=== PATIENT | male | born 1935 | race Caucasian/White ===

== ENCOUNTER 2016-06-18 17:23 | Inpatient (IN) | payer MEDICARE, OTHER ==
[2016-06-18 18:09] LABS: Hematocrit 35 % (42-52); Hemoglobin 11.6 g/dl (14.0-18.0); Mean Corpuscular HGB Conc 33 g/dl (31-36); Mean Corpuscular Hemoglobin 32 pg (27-31); Mean Corpuscular Volume 98 fL (80-94); Mean Platelet Volume 8 um3 (7.4-10.4); Red Blood Count 3.59 10^6/ul (4.0-5.4); Red Cell Distribution Width 16 % (10.5-15); White Blood Count 3.4 10^3/ul (3.5-10.8)
[2016-06-18 18:13] LABS: Add Diff/Slide Review? Slide Review Added; Comments Flag Yes
[2016-06-18 18:22] LABS: Albumin 3.4 g/dL (3.2-5.2); BUN/Creatinine Ratio 20.9 (8-20); Calcium 8.8 mg/dL (8.6-10.3); EGFR African American 102.8 (>60); Globulin 2.7 g/dL (2-4); Potassium 3.5 mmol/L (3.5-5.0); Total Bilirubin 1.2 mg/dL (0.2-1.0); Total Protein 6.1 g/dL (6.4-8.9)
[2016-06-18 18:23] LABS: Troponin I 0.01 ng/mL (<0.04)
[2016-06-18 18:40] LABS: Eosinophils % 2 % (0-6); Immature Granulocytes 11 % (0-9); Macrocytosis 2+; Metamyelocytes % 2 % (0-2); Neutrophil % 69 % (38-83); Polychromasia 1+; Reactive Lymph % 3 % (0-6)
[2016-06-18 18:41] LABS: Stomatocytes 1+
--- NOTE | 2016-06-18 18:41 | RAD ---
INDICATION: Fever COMPARISON: Most recent comparison chest x-rays dated December 05, 2015 TECHNIQUE: Single AP portable view of the chest was obtained. FINDINGS: Image quality is compromised due to the relative inferiority of a portable chest x-ray. Again seen is a right upper chest subclavian vein Mediport with the tip terminating at the cavoatrial junction. The heart and mediastinum exhibit normal size and contour. The lungs are grossly clear. There is no evidence of a large pleural effusion. Visualized bones are normal for the patient's age. IMPRESSION: No radiographic evidence for acute cardiopulmonary abnormality on this portable chest x-ray.
[2016-06-18] MEDS: NS 0.9% 1000 ML* 2,000 ML IV ONE ×2 (19:56→20:46)
[2016-06-18 20:12] LABS: Urine Bacteria 1+ (Absent); Urine Bilirubin Negative (Negative); Urine Glucose Negative (Negative); Urine Nitrite Negative (Negative)
[2016-06-18] MEDS ORDERED: cefTRIAXone(*) 2 GM ADDV.VIAL IVPB ONE (20:42)
[2016-06-18] MEDS ORDERED: NS 0.9% 500 ML BAG* 500 ML IV ONE (21:00)
[2016-06-18] MEDS ORDERED: Cetirizine* 10 MG TAB PO PRN (21:57)
[2016-06-18] MEDS ORDERED: oxyCODONE TAB* 5 MG TAB PO PRN (21:57)
[2016-06-18] MEDS ORDERED: ECONAZOLE 1% TOPICAL PRN (21:57)
[2016-06-18] MEDS ORDERED: Loperamide CAP* 2 MG PO PRN (21:57)
[2016-06-18] MEDS ORDERED: Ondansetron INJ* 2 MG/ML VIAL IV PRN (22:02)
[2016-06-18] MEDS ORDERED: Acetaminophen TAB* 325 MG PO PRN (22:02)
[2016-06-18] MEDS ORDERED: Dextrose 50% Syringe 50 ML* 25 GM/50 ML SYRINGE IV PUSH PRN (22:03)
[2016-06-19] MEDS: NS 0.9% 1000 ML* 1,000 ML IV SCH ×2 (02:11→06:56)
[2016-06-19] MEDS: Insulin LISPRO* 1 UNITS UNIT SUBCUT SCH ×3 (07:57→17:09)
[2016-06-19] MEDS: oxyCODONE SR TAB(*) 10 MG TAB.SR PO SCH ×2 (08:49→21:43)
[2016-06-19] MEDS: predniSONE TAB* 5 MG PO SCH ×2 (08:50→21:43)
[2016-06-19] MEDS ORDERED: Ferrous Sulfate TAB* 325 MG PO SCH (09:00)
--- NOTE | 2016-06-19 09:05 | HP ---
HISTORY AND PHYSICAL: DATE OF ADMISSION: 06/18/16 CHIEF COMPLAINT: Please note the history was given by his . HISTORY OF PRESENT ILLNESS: The patient had been doing well recently, using his walker and getting around quite well; but yesterday he started becoming more fatigued and unsteady. He was increasingly confused as well. It continued today which made them more concerned. His appetite decreased as well. He had trouble even getting out of bed. He has a chronic issue with incontinence, and has had a couple of UTIs already this year. They took his temperature at home and it was 101.2, and their PCP told them to take him to the hospital. In the hospital, the patient does appear to have a urinary tract infection, and is already feeling better with some rehydration. PAST MEDICAL HISTORY: Significant for: 1. Prostate cancer metastasized to his scapula and his liver. He is status post six rounds of chemo Taxotere, oral Zytiga, and recently started on his second round of new chemotherapy. 2. B12 deficiency. 3. Cognitive impairment. 4. Post-concussive syndrome. 5. Type 2 diabetes. 6. DVT. 7. Gallstones. 8. Macrocytosis. 9. Psoriases. 10. Previous radiation treatment in 2006. CURRENT MEDICATIONS: 1. Lupron 30 mg injection monthly. 2. Loratadine 10 mg daily. 3. Iron 325 mg daily. 4. Imodium A-D 1 mg tab daily as needed. 5. Econazole cream daily as needed. 6. Oxycodone 5 mg every 4 hours as needed. 7. Oxycodone SR 10 mg twice daily. 8. Glipizide. 9. Metformin one tablet twice daily. 10. Prednisone 5 mg twice daily. 11. Coumadin 6 mg daily. 12. Flomax 0.4 mg daily. ALLERGIES: He has environmental allergies, but no known drug allergies. FAMILY HISTORY: Reviewed and noncontributory. SOCIAL HISTORY: No tobacco, alcohol or recreational drug use. His , Maria Isabel Connor, is his healthcare proxy. He has two daughters in the room. REVIEW OF SYSTEMS: A 14-point review of systems is completed with the patient. All pertinent positives and negatives are in the history of present illness, otherwise it is negative. PHYSICAL EXAMINATION GENERAL: A very pleasant gentleman lying in bed, in no acute distress. VITAL SIGNS: Temperature 98.9 degrees, heart rate 103 beats per minute, pulse ox 96%, blood pressure 125/58. HEENT: Normocephalic and atraumatic. Pupils are equal, round and reactive to light. Moist mucous membranes. NECK: Supple. No JVD, bruits, palpable thyroid or lymphadenopathy. CHEST: Clear to auscultation and percussion bilaterally. CARDIOVASCULAR: S1, S2 appreciated. ABDOMEN: Positive bowel sounds in all 4 quadrants. Soft, nontender, and nondistended. EXTREMITIES: No cyanosis, clubbing, or edema. +2 peripheral pulses bilaterally. NEUROLOGIC: Alert and oriented x3. Moves all extremities. SKIN: No rashes or abnormalities. LABORATORY DATA: White count 3.4, hemoglobin 11.6, hematocrit 35, platelets 209. Sodium 135, potassium 3.5, chloride 100, CO2 25, BUN 19, creatinine 0.91, glucose 112, INR 2.12. Urinalysis shows +3 leukocyte esterase, +3 wbcs, +3 rbcs. Chest x-ray was interpreted by Radiology as no radiographic evidence of acute cardiopulmonary abnormality on the portable chest x-ray. ASSESSMENT AND PLAN: 1. UTI. Place the patient on Ancef 1 g IV q.day. Await cultures and sensitivities. Also place him on normal saline at a rate of 100 mL an hour as he appears quite dry. 2. Diabetes mellitus. Hold oral hypoglycemics. Place on fingersticks with sliding scale insulin and monitor. 3. Prostate cancer with mets. Management as per oncology. Continue current pain management. 4. DVT. Continue Coumadin. 5. BPH. Continue Flomax. 6. FEN. Regular diet. 7. DVT prophylaxis. On Coumadin. 8. The patient is a full code. TIME SPENT: Over 75 minutes were spent on this H and P, more than 40 minutes of which were spent in direct [id number] contact with the patient in evaluation, physical exam, counseling, and coordination of care. CC: Dr. Mayo Gallego* [id number]/[facility] #: [id number] MTDD
--- NOTE | 2016-06-19 13:27 | RAD ---
Indication: Aspiration. Single frontal view of the chest performed at 1305 hours was reviewed. Comparison is made with previous exam dated June 18, 2016. Hyperinflated lung almaraz are noted. Heart is normal size and configuration. Lung almaraz are clear. IMPRESSION: NO ACTIVE CARDIOPULMONARY DISEASE IS NOTED.
[2016-06-19] MEDS ORDERED: ECONAZOLE 1% TOPICAL PRN (15:31)
[2016-06-19] MEDS ORDERED: Ferrous Sulfate DROPS* 15 MG/ML PO SCH (16:07)
--- NOTE | 2016-06-19 17:01 | PN ---
Subjective Date of Service: 06/19/16 Interval History: This is an 81 yo gentleman currently under active treatment for metastatic prostate cancer admitted overnight last night with complaints of fatigue, unsteady gait and confusion. Urinanalysis was suggestive of UTI and he was empirically started on Ceftriaxone. Patient's family has noted some improvement in his mental status today. Patient offers no acute complaints but he did experience an aspiration event at lunch today. He had several bites of his baked chicken but then was eating chocolate pudding when he began coughing and subsequently vomited. Patient denied proceeding nausea or abdominal pain. He continues to cough occasionally , but no c/o of SOB. No h/o of aspiration at home or c/o dysphagia. Objective Active Medications: Acetaminophen (Tylenol Tab*) 650 mg PO Q4H PRN PRN Reason: FEVER/PAIN Cetirizine HCl (Zyrtec*) 10 mg PO DAILY PRN PRN Reason: Allergy Symptoms Dextrose (D50w Syringe 50 Ml*) 12.5 gm IV PUSH .FOR FS < 60 - SS PRN PRN Reason: FS < 60 Econazole Nitrate (Econazole 1 % Cream (Nf)) 1 applic TOPICAL DAILY PRN PRN Reason: RASH Heparin Sodium (Porcine) (Heparin Flush Port (Ivad)) 5 ml FLUSH DAILY [facility] PRN Reason: Protocol Last Admin: 06/19/16 13:45 Dose: 5 ml Ceftriaxone Sodium 1,000 mg/ (Sodium Chloride) 50 mls @ 200 mls/hr IVPB Q24H [facility] Insulin Human Lispro (Humalog*) 0 units SUBCUT AC [facility] PRN Reason: Protocol Last Admin: 06/19/16 12:17 Dose: Not Given Loperamide HCl (Imodium Cap*) 2 mg PO DAILY PRN PRN Reason: DIARRHEA Ferrous Sulfate 65 (Mg) 1 dose PO DAILY [facility] Ondansetron HCl (Zofran Inj*) 4 mg IV Q4H PRN PRN Reason: NAUSEA Last Admin: 06/19/16 13:29 Dose: 4 mg Oxycodone HCl (Oxycontin(*)) 10 mg PO BID [facility] Last Admin: 06/19/16 08:49 Dose: 10 mg Oxycodone HCl (Roxycodone Tab*) 5 mg PO Q4H PRN PRN Reason: PAIN Prednisone (Deltasone Tab*) 5 mg PO BID [facility] Last Admin: 06/19/16 08:50 Dose: 5 mg Tamsulosin HCl (Flomax Cap*) 0.4 mg PO BEDTIME [facility] Warfarin Sodium (Coumadin Tab(*)) 6 mg PO DAILY@1700 [facility] PRN Reason: Protocol Vital Signs: Temp Pulse Resp BP Pulse Ox 98.8 F 104 16 130/51 97 06/19/16 15:24 06/19/16 15:24 06/19/16 10:49 06/19/16 15:24 06/19/16 15:24 Appearance: Well appearing elderly gentleman in a chair at bedside with family accompanying him Neck: NL Appearance and Movements; NL JVP Respiratory: Symmetrical Chest Expansion and Respiratory Effort, Clear to Auscultation Cardiovascular: NL Sounds; No Murmurs; No JVD, RRR Abdominal: NL Sounds; No Tenderness; No Distention Extremities: - - mild LE edema, compression stockings in place. Neurological: - - alert, appropriate in conversation, but forgetful and relied on his family to help with providing some answers Result Diagrams: 06/18/16 17:35 06/18/16 17:35 Additional Lab and Data: . Diagnostic Imaging: CXR - NAD Assess/Plan/Problems-Billing Assessment: This is an 81 yo male with metastatic prostate CA, NIDDM, and prior DVT who presented with weakness and confusion with noted UTI. - Patient Problems (1) Sepsis Comment: Secondary to UTI qSOFA = 2 at admission due to tachypnea and AMS and met SIRS criteria including fever and tachycardia (2) Encephalopathy Comment: Secondary to UTI Improving (3) UTI (urinary tract infection) Comment: Culture pending Cont ceftriaxone (4) Prostate cancer metastatic to bone Comment: Under active treatment with Dr Gallego (5) Diabetes Comment: Non-insulin dependent Good glycemic control since admission Oral hypoglycemic agents have been held, covering with mealtime Humalog (6) Aspiration into respiratory tract Comment: Ordered repeat CXR No h/o prior dysphagia or other aspiration events Requested speech evaluation for swallow evaluation (7) History of DVT (deep vein thrombosis) Comment: Anticoagulated with Coumadin Status and Disposition: Patient requires continued hospital care, further treatment per oncology team. Attending physician will be transitioned to Dr Katarzyna Hollins.
[2016-06-19] MEDS: Warfarin TAB(*) 6 MG PO SCH (17:12)
[2016-06-19] MEDS: cefTRIAXone VIAL(*) 1,000 MG in NS 0.9% 50 ML* 50 ML IVPB SCH (21:36)
[2016-06-19] MEDS: Tamsulosin CAP* 0.4 MG PO SCH (21:42)
[2016-06-20 06:15] LABS: Hematocrit 29 % (42-52); Hemoglobin 9.7 g/dl (14.0-18.0); Mean Corpuscular HGB Conc 34 g/dl (31-36); Mean Corpuscular Hemoglobin 33 pg (27-31); Mean Corpuscular Volume 98 fL (80-94); Mean Platelet Volume 8 um3 (7.4-10.4); Red Blood Count 2.92 10^6/ul (4.0-5.4); Red Cell Distribution Width 16 % (10.5-15)
[2016-06-20 06:23] LABS: Comments Flag Yes; White Blood Count 3.3 10^3/ul (3.5-10.8)
[2016-06-20 06:24] LABS: Add Diff/Slide Review? Slide Review Added
[2016-06-20 06:29] LABS: BUN/Creatinine Ratio 19.4 (8-20); Calcium 8.3 mg/dL (8.6-10.3); EGFR African American 89.1 (>60); EGFR Non-African American 69.3 (>60)
[2016-06-20 06:47] LABS: Hypochromasia 1+; Immature Granulocytes 4 % (0-9); Neutrophil % 62 % (38-83); Reactive Lymph % 1 % (0-6)
[2016-06-20 06:49] LABS: Add Path Review? YES
[2016-06-20] MEDS: Insulin LISPRO* 1 UNITS UNIT SUBCUT SCH ×3 (08:15→17:29)
[2016-06-20] MEDS: oxyCODONE SR TAB(*) 10 MG TAB.SR PO SCH ×2 (08:28→23:21)
[2016-06-20] MEDS: predniSONE TAB* 5 MG PO SCH ×2 (08:28→23:23)
[2016-06-20] MEDS ORDERED: FERROUS SULFATE 65 MG PO SCH (09:00)
--- NOTE | 2016-06-20 11:01 | PN ---
Progress Note - Progress Note SOAP: Subjective: []Admitted late 06/18 with SIRS, first abx. 06/18 @ approx. 2000 Temp. last night, otherwise stable. Feeling a lot better today, more oriented and a little stronger. Still weak and "wobbly". is curious about more assistance @ home. Medications: Acetaminophen (Tylenol Tab*) 650 mg PO Q4H PRN PRN Reason: FEVER/PAIN Last Admin: 06/20/16 00:03 Dose: 650 mg Cetirizine HCl (Zyrtec*) 10 mg PO DAILY PRN PRN Reason: Allergy Symptoms Dextrose (D50w Syringe 50 Ml*) 12.5 gm IV PUSH .FOR FS < 60 - SS PRN PRN Reason: FS < 60 Last Admin: 06/20/16 08:27 Dose: 12.5 gm Econazole Nitrate (Econazole 1 % Cream (Nf)) 1 applic TOPICAL DAILY PRN PRN Reason: RASH Heparin Sodium (Porcine) (Heparin Flush Port (Ivad)) 5 ml FLUSH DAILY [facility] PRN Reason: Protocol Last Admin: 06/20/16 08:28 Dose: 5 ml Ceftriaxone Sodium 1,000 mg/ (Sodium Chloride) 50 mls @ 200 mls/hr IVPB Q24H [facility] Last Admin: 06/19/16 21:36 Dose: 200 mls/hr Insulin Human Lispro (Humalog*) 0 units SUBCUT AC [facility] PRN Reason: Protocol Last Admin: 06/20/16 08:15 Dose: Not Given Loperamide HCl (Imodium Cap*) 2 mg PO DAILY PRN PRN Reason: DIARRHEA Last Admin: 06/19/16 17:14 Dose: 2 mg Ferrous Sulfate 65 (Mg) 1 dose PO DAILY [facility] Last Admin: 06/20/16 08:40 Dose: Not Given Ondansetron HCl (Zofran Inj*) 4 mg IV Q4H PRN PRN Reason: NAUSEA Last Admin: 06/19/16 13:29 Dose: 4 mg Oxycodone HCl (Oxycontin(*)) 10 mg PO BID [facility] Last Admin: 06/20/16 08:28 Dose: 10 mg Oxycodone HCl (Roxycodone Tab*) 5 mg PO Q4H PRN PRN Reason: PAIN Prednisone (Deltasone Tab*) 5 mg PO BID [facility] Last Admin: 06/20/16 08:28 Dose: 5 mg Tamsulosin HCl (Flomax Cap*) 0.4 mg PO BEDTIME [facility] Last Admin: 06/19/16 21:42 Dose: 0.4 mg Warfarin Sodium (Coumadin Tab(*)) 6 mg PO DAILY@1700 [facility] PRN Reason: Protocol Last Admin: 06/19/16 17:12 Dose: 6 mg Objective: [] Vital Signs Temp Pulse Resp BP Pulse Ox 97.8 F 87 16 101/48 95 06/20/16 06:36 06/20/16 06:36 06/20/16 08:28 06/20/16 06:36 06/20/16 08:00 A&Ox3, slow responses, follows directions EOMI, EMSA, ambulates with slow shuffled gait HRR, S1S2 LS clear +BS, abd. soft and non-tender +PP=bilat., +2 edema bilat. Laboratory Results - last 24 hr 06/19/16 06/19/16 06/20/16 11:57 16:19 06:00 WBC RBC Hgb Hct MCV MCH MCHC RDW Plt Count MPV Immature Gran % (Auto) Neut % (Auto) Lymph % (Auto) Hawkins % (Auto) Eos % (Auto) Baso % (Auto) Absolute Neuts (auto) Absolute Lymphs (auto) Absolute Monos (auto) Absolute Eos (auto) Absolute Basos (auto) Absolute Nucleated RBC Neutrophils % Band Neutrophils % Lymphocytes % Reactive Lymphs % Monocytes % Basophils % Nucleated RBC % Normal RBC Morphology Hypochromasia Sodium 136 Potassium 3.0 L Chloride 106 Carbon Dioxide 24 Anion Gap 6 BUN 20 Creatinine 1.03 Est GFR ( Amer) 89.1 Est GFR (Non-Af Amer) 69.3 BUN/Creatinine Ratio 19.4 Glucose 130 H POC Glucose (mg/dL) 113 H 152 H Calcium 8.3 L 06/20/16 06/20/16 06/20/16 06:00 08:13 08:56 WBC 3.3 L RBC 2.92 L Hgb 9.7 L Hct 29 L MCV 98 H MCH 33 H MCHC 34 RDW 16 H Plt Count 164 MPV 8 Immature Gran % (Auto) 4 Neut % (Auto) 67.4 Lymph % (Auto) 9.7 L Hawkins % (Auto) 22.4 H Eos % (Auto) 0.2 Baso % (Auto) 0.3 Absolute Neuts (auto) 2.2 Absolute Lymphs (auto) 0.3 L Absolute Monos (auto) 0.7 Absolute Eos (auto) 0 Absolute Basos (auto) 0 Absolute Nucleated RBC 0 Neutrophils % 62 Band Neutrophils % 4 Lymphocytes % 6 L Reactive Lymphs % 1 Monocytes % 26 H Basophils % 1 Nucleated RBC % 0.1 Normal RBC Morphology Not Reportable Hypochromasia 1+ Sodium Potassium Chloride Carbon Dioxide Anion Gap BUN Creatinine Est GFR ( Amer) Est GFR (Non-Af Amer) BUN/Creatinine Ratio Glucose POC Glucose (mg/dL) 57 L 223 H Calcium Assessment: []81 y.o. m. with metastatic prostate cancer currently on palliative Cabezitaxel admitted with SIRS secondary to Klebsiella UTI, sensitive to Ceftriaxone, and appearing to improve slowly on abx. Plan: []1. Klebsiella UTI: cont. IV abx. through tonight (will be third dose) and plan d/c home with Cipro 2. Weakness: secondary to deconditioning from SIRS, cont. PT and will request home care eval. as well. 3. Hypokalemia: will give 40 mEq IV today and start PO replacement, follow daily labs 4. Prostate Cancer: f/u Dr. Gallego 06/26 already scheduled, will determine plan of care regarding further tx. at that time
[2016-06-20 11:28] LABS: Magnesium 1.9 mg/dL (1.9-2.7)
[2016-06-20] MEDS: KCL 20 MEQ/100 ML IVPREMIX* 20 MEQ/100 ML BAG IV SCH ×2 (11:56→14:09)
[2016-06-20] MEDS: Potassium Chloride LIQUID* 20 MEQ PACKET PO SCH (11:57)
[2016-06-20] MEDS: Warfarin TAB(*) 6 MG PO SCH (17:28)
[2016-06-20] MEDS: cefTRIAXone VIAL(*) 1,000 MG in NS 0.9% 50 ML* 50 ML IVPB SCH (23:00)
[2016-06-20] MEDS: glipiZIDE TAB* 5 MG PO SCH (23:19)
[2016-06-20] MEDS: metFORMIN* 500 MG TAB PO SCH (23:22)
[2016-06-20] MEDS: Tamsulosin CAP* 0.4 MG PO SCH (23:23)
[2016-06-21 05:56] LABS: Hematocrit 28 % (42-52); Hemoglobin 9.4 g/dl (14.0-18.0); Mean Corpuscular HGB Conc 33 g/dl (31-36); Mean Corpuscular Hemoglobin 33 pg (27-31); Mean Corpuscular Volume 97 fL (80-94); Mean Platelet Volume 8 um3 (7.4-10.4); Red Blood Count 2.88 10^6/ul (4.0-5.4); Red Cell Distribution Width 16 % (10.5-15); White Blood Count 3.7 10^3/ul (3.5-10.8)
[2016-06-21 06:14] LABS: BUN/Creatinine Ratio 26.4 (8-20); Calcium 8.1 mg/dL (8.6-10.3); EGFR African American 102.8 (>60); Magnesium 1.8 mg/dL (1.9-2.7); Potassium 3.9 mmol/L (3.5-5.0)
--- NOTE | 2016-06-21 07:39 | DS ---
- Discharge Summary ADMIT DATE:06/18/16 DISCHARGE DATE: 06/21/16 DISCHARGE DIAGNOSIS: 1. SIRS from urinary tract infection 2. klebsiella UTI 3. dehydration 4. metastatic prostate cancer on palliative chemotherapy 5. hypokalemia DISCHARGE MEDICATIONS: Home Medications Medication Instructions Recorded Confirmed Type Iron 65 mg PO DAILY 01/19/15 06/19/16 History LoraTADine TAB(NF) [Claritin 10 MG 10 mg PO DAILY PRN 01/19/15 06/18/16 History TAB(NF)] Imodium A-D 1 tab PO DAILY PRN 01/31/15 06/18/16 History Econazole 1 % CREAM (NF) 1 apply TOPICAL DAILY PRN 09/24/15 06/18/16 History Lupron Depot (NF) 30 mg INJ MONTHLY 09/24/15 06/18/16 History Glipizide-Metformin HCl 1 tab PO BID 06/18/16 06/18/16 History [Glipizide/Metformin HCl 2.5-250 mg] Warfarin TAB(*) [Coumadin TAB(*)] 6 mg PO DAILY@1700 06/18/16 06/18/16 History oxyCODONE SR TAB(*) [Oxycontin 10 10 mg PO BID 06/18/16 06/18/16 History mg (*)] oxyCODONE TAB* [Roxycodone TAB 5 5 mg PO Q4H PRN 06/18/16 06/18/16 History mg*] predniSONE TAB* [Deltasone TAB*] 5 mg PO BID 06/18/16 06/18/16 History Cyanocobalamin TAB* [Vitamin B12 500 mcg PO DAILY 06/19/16 06/19/16 History TAB*] Docusate CAP* [Colace Cap*] 100 mg PO DAILY PRN 06/19/16 06/19/16 History Psyllium LUCILLE* [Metamucil LUCILLE*] 1 pkt PO DAILY PRN 06/19/16 06/19/16 History Senna TAB* [Senokot TAB*] 1 tab PO DAILY PRN 06/19/16 06/19/16 History Terazosin CAP* [Hytrin CAP*] 1 mg PO BEDTIME 06/19/16 06/19/16 History Ciprofloxacin TAB* [Cipro 250 MG 250 mg PO Q12HR #10 tab 06/21/16 Rx Tab*] Potassium Chloride LIQUID* 20 meq PO DAILY #30 packet 06/21/16 Rx [Klor-Con LIQUID*] Tamsulosin CAP* [Flomax CAP*] 0.4 mg PO BEDTIME cap 06/21/16 Rx *] bold medications new DISCHARGE FOLLOW UP: Dr. Gallego 06/26 at 2:40 pm, to have INR checked at this visit HOSPITAL COURSE: see full admit H+P, briefly 81 yo M w metastatic prostate cancer on palliative chemotherapy with Jevtana, who presented with fevers, weakness and hypotension and was found to have a klebsiella urinary tract infection. He was treated with hydration and IV antibiotics with improvement. He reports feeling well enough to go home. His infection is sensitive to cipro and he will be discharged with 5 more days of therapy. He was also started on potassium supplementation. Given antibiotic use, his INR will be followed closely and will be checked prior to discharge and on his follow up with Dr. Gallego on the . He will also have electrolytes checked on this visit. >30 mins spent, >50% in face to face counseling
[2016-06-21] MEDS ORDERED: Ciprofloxacin TAB* 250 MG PO SCH (09:00)
[2016-06-21] MEDS ORDERED: Ferrous Sulfate TAB* 325 MG PO SCH (09:00)
[2016-06-21] MEDS: oxyCODONE SR TAB(*) 10 MG TAB.SR PO SCH (09:07)
[2016-06-21] MEDS: Potassium Chloride LIQUID* 20 MEQ PACKET PO SCH (09:07)
[2016-06-21] MEDS: glipiZIDE TAB* 5 MG PO SCH (09:13)
[2016-06-21] MEDS: predniSONE TAB* 5 MG PO SCH (09:14)
[2016-06-21] MEDS: metFORMIN* 500 MG TAB PO SCH (09:14)
[2016-06-21] MEDS: Insulin LISPRO* 1 UNITS UNIT SUBCUT SCH ×2 (09:17→13:33)
[2016-06-21 11:08] VITALS: BP 110/48
== END 2016-06-21 15:15 | disposition home or self-care (01) | DRG 689 ==
LOC: ED 17:23 → MED 22:03
PROVIDERS: ADMIT Internal Medicine; ATTEND Internal Medicine Hematology & Oncology
DX: N39.0 Urinary tract infection, site not specified (principal); G93.40 Encephalopathy, unspecified; C78.7 Secondary malignant neoplasm of liver and intrahepatic bile duct; C79.51 Secondary malignant neoplasm of bone; B96.1 Klebsiella pneumoniae [K. pneumoniae] as the cause of diseases classified elsewhere; E86.0 Dehydration; C61 Malignant neoplasm of prostate; F07.81 Postconcussional syndrome; E87.6 Hypokalemia; E53.8 Deficiency of other specified B group vitamins; N40.0 Benign prostatic hyperplasia without lower urinary tract symptoms; G31.84 Mild cognitive impairment of uncertain or unknown etiology; E11.9 Type 2 diabetes mellitus without complications; D75.89 Other specified diseases of blood and blood-forming organs; L40.9 Psoriasis, unspecified; K80.80 Other cholelithiasis without obstruction; Z86.718 Personal history of other venous thrombosis and embolism; Z79.84 Long term (current) use of oral hypoglycemic drugs; Z79.1 Long term (current) use of non-steroidal anti-inflammatories (NSAID); Z79.01 Long term (current) use of anticoagulants; Z79.891 Long term (current) use of opiate analgesic; Z79.52 Long term (current) use of systemic steroids; Z79.899 Other long term (current) drug therapy
CPT/HCPCS: 36415; 71010; 80048; 80053; 81003; 81015; 83605; 83735; 84484; 85025; 85060; 85610; 85730; 87040; 87077; 87086; 87186; 99232; 99233; A9270-GY; J0696; J1642; J2405; J3480; J7512

== ENCOUNTER 2016-07-30 17:24 | Inpatient (IN) | payer MEDICARE, OTHER ==
[2016-07-30] MEDS ORDERED: Docusate CAP* 100 MG PO PRN (17:41)
--- NOTE | 2016-07-30 19:33 | RAD ---
Indication: Fall, head injury, on anticoagulants CT of the brain was performed without IV contrast. Ventricular structures are midline. No midline shift is noted. The extra-axial spaces are unremarkable. There is no evidence of intracranial mass or hemorrhage. No other high or low density lesions are identified. Central and cortical atrophy is noted. Compared to previous exam of May 04, 2015 no significant change is noted. IMPRESSION: No intracranial mass or hemorrhage is noted.
[2016-07-30] MEDS: oxyCODONE SR TAB(*) 10 MG TAB.SR PO SCH (21:28)
[2016-07-30] MEDS: Warfarin TAB(*) 5 MG PO SCH (21:29)
[2016-07-30] MEDS: metFORMIN* 500 MG TAB PO SCH (21:30)
[2016-07-30] MEDS: glipiZIDE TAB* 5 MG PO SCH (21:30)
[2016-07-30] MEDS: predniSONE TAB* 5 MG PO SCH (21:30)
[2016-07-31 06:14] LABS: Hematocrit 29 % (42-52); Hemoglobin 9.6 g/dl (14.0-18.0); Mean Corpuscular HGB Conc 34 g/dl (31-36); Mean Corpuscular Hemoglobin 33 pg (27-31); Mean Corpuscular Volume 97 fL (80-94); Mean Platelet Volume 9 um3 (7.4-10.4); Red Blood Count 2.96 10^6/ul (4.0-5.4); Red Cell Distribution Width 19 % (10.5-15); White Blood Count 5.2 10^3/ul (3.5-10.8)
[2016-07-31 06:25] LABS: Albumin 2.8 g/dL (3.2-5.2); BUN/Creatinine Ratio 25.3 (8-20); Calcium 8.4 mg/dL (8.6-10.3); EGFR African American 108.3 (>60); EGFR Non-African American 84.2 (>60); Globulin 2.4 g/dL (2-4); Potassium 3.8 mmol/L (3.5-5.0); Total Bilirubin 0.4 mg/dL (0.2-1.0); Total Protein 5.2 g/dL (6.4-8.9)
[2016-07-31] MEDS: metFORMIN* 500 MG TAB PO SCH ×2 (08:34→20:40)
[2016-07-31] MEDS: Potassium Chloride LIQUID* 20 MEQ PACKET PO SCH (08:34)
[2016-07-31] MEDS: oxyCODONE SR TAB(*) 10 MG TAB.SR PO SCH ×2 (08:34→20:39)
[2016-07-31] MEDS: predniSONE TAB* 5 MG PO SCH ×2 (08:34→20:40)
[2016-07-31] MEDS: glipiZIDE TAB* 5 MG PO SCH ×2 (08:35→20:40)
--- NOTE | 2016-07-31 08:46 | DS ---
- Discharge Summary BRIEF OBV DISCHARGE SUMMARY ADMIT DATE: 07/30/16 DISCHARGE DATE: 07/31/16 DISCHARGE DIAGNOSIS: 1. fall, mechanical 2. deconditioning 3. metastatic prostate cancer DISCHARGE MEDICATIONS: Home Medications Medication Instructions Recorded Confirmed Type Iron 65 mg PO DAILY 01/19/15 07/30/16 History LoraTADine TAB(NF) [Claritin 10 MG 10 mg PO DAILY PRN 01/19/15 07/30/16 History TAB(NF)] Imodium A-D 1 tab PO DAILY PRN 01/31/15 07/30/16 History Econazole 1 % CREAM (NF) 1 apply TOPICAL DAILY PRN 09/24/15 07/30/16 History y Glipizide-Metformin HCl 1 tab PO BID 06/18/16 07/30/16 History [Glipizide/Metformin HCl 2.5-250 mg] oxyCODONE SR TAB(*) [Oxycontin 10 30 mg PO BID 06/18/16 07/30/16 History mg (*)] oxyCODONE TAB* [Roxycodone TAB 5 5 mg PO Q4H PRN 06/18/16 07/30/16 History mg*] predniSONE TAB* [Deltasone TAB*] 5 mg PO BID 06/18/16 07/30/16 History Cyanocobalamin TAB* [Vitamin B12 500 mcg PO DAILY 06/19/16 07/30/16 History TAB*] Docusate CAP* [Colace Cap*] 100 mg PO DAILY PRN 06/19/16 07/30/16 History Senna TAB* [Senokot TAB*] 1 tab PO DAILY PRN 06/19/16 07/30/16 History Terazosin CAP* [Hytrin CAP*] 1 mg PO BEDTIME 06/19/16 07/30/16 History Potassium Chloride LIQUID* 20 meq PO DAILY #30 packet 06/21/16 07/30/16 Rx [Klor-Con LIQUID*] Warfarin TAB(*) [Coumadin TAB(*)] 5 MG tab PO DAILY Mon-Thur 07/31/16 07/30/16 Rx Warfarin TAB(*) [Coumadin TAB(*)] 7.5 mg PO DAILY Fri-Thu07/31/16 07/30/16 Rx DISCHARGE FOLLOW UP: CT scans 08/[address] Gallego 08/07 at 11 am HOSPITAL COURSE: see full admit H+P. Mr. Connor had a fall the morning of admission. At the time it was not clear if he syncopized or if it was a mechanical fall. He did hit his face/head and has a conjunctival hemorrhage. In speaking with him this am he is very clear that he got up to use his bedside commode and tripped over his own feet falling. He was unable to get up without assistance. He had a head CT which was unremarkable and was observed overnight on telemetry without event. His INR notably was low and his coumadin will be increased as above. He will recheck in 2 weeks.
[2016-07-31] MEDS ORDERED: Iodixanol* (CONTRAST) 320 MG/ML 100 ML SDV IV SCH (14:57)
--- NOTE | 2016-07-31 16:41 | RAD ---
Indication: Restaging, prostate carcinoma with metastatic disease. Contrast: Administered 94.2 ml of VISIPAQUE 320 mg/ml CT of the chest, abdomen and pelvis was performed after oral and IV contrast administration. Comparison is made with previous exam dated May 09, 2016. The inferior thyroid lobes are unremarkable. No mediastinal or hilar adenopathy is noted. The heart demonstrates no pericardial effusion. The trachea and major bronchi appear patent. There are bilateral pleural effusions which are small in size, which are new since previous exam of May 09, 2016. Likely scarring is noted in the periphery of the left upper lobe which is stable since prior exam. The liver is normal in size. Again noted is a mass in the caudate lobe which appears suspicious for metastatic disease. Overall size measures 5.8 cm in length x 7.4 cm AP x 4.6 cm in greatest width. These are similar in size to previous examination. The mass appears to extend into the anterior segment of the right lobe of the liver as well as to the dome of the liver. Additional low density lesion in the inferior tip of the right lobe of the liver measures 11 mm and in the medial segment of the left lobe of the liver measuring 22 mm. These likely represent cysts. Previously described lesion in the left lobe is not well seen on the current study. The thoracic bony structures demonstrate sclerosis in several thoracic vertebrae in T8, T7 and T6. Additionally in T2, there is increased sclerosis which has progressed since previous examination. There is progression of scapular sclerosis as well. The spleen is normal in size. Pancreas demonstrates no mass or pancreatic duct dilatation. The gallbladder likely represents gallstones present within the gallbladder. These are unchanged from previous exam. Common duct is not dilated. No adrenal lesions are noted. There is moderate degree of left hydronephrosis which has progressed since previous exam. There is left hydroureter noted. A tortuous distal ureter is noted. There is suggestion of high density material in the distal left ureter which may be causing obstruction. There is focal wall thickening of the left lateral aspect of the urinary bladder. No pelvic adenopathy is noted. No hernias are noted. No retroperitoneal lymphadenopathy is noted. Atherosclerotic aorta is noted. CT of the pelvis demonstrates no pelvic adenopathy. No hernias are noted. No dilated loops of bowel are noted. The colon is filled with stool. IMPRESSION: 1. There is increasing left pleural effusion noted. Small trace right pleural effusion is also present. 2. There is increasing sclerotic lesion at the T2 vertebra which was not clearly present previously. 3. Other bony metastases are also present at T6, T7 and T8. There is also progression of left scapular sclerosis. 4. Interval development of left hydronephrosis and left hydroureter. There is wall thickening of the urinary bladder on the left lateral aspect of the urinary bladder. 5. Caudate lobe mass remains unchanged from previous exam.
[2016-07-31] MEDS: Warfarin TAB(*) 5 MG PO SCH (17:16)
[2016-08-01] MEDS: oxyCODONE SR TAB(*) 10 MG TAB.SR PO SCH ×2 (09:32→21:43)
[2016-08-01] MEDS: glipiZIDE TAB* 5 MG PO SCH ×2 (09:47→21:41)
[2016-08-01] MEDS: metFORMIN* 500 MG TAB PO SCH ×2 (09:48→21:41)
[2016-08-01] MEDS: predniSONE TAB* 5 MG PO SCH ×2 (09:48→21:41)
[2016-08-01] MEDS: Potassium Chloride LIQUID* 20 MEQ PACKET PO SCH (09:50)
--- NOTE | 2016-08-01 10:36 | PN ---
Progress Note - Progress Note SOAP: Subjective: []Pain better. Working with PT but not able to do much yet. Has been mostly bed bound. Has fecal incontinence, new since coming into hospital. No fever or chills. Brought to ER after falling at home and could not get up. Docusate Sodium (Colace Cap*) 100 mg PO DAILY PRN PRN Reason: CONSTIPATION Glipizide (Glucotrol Tab*) 2.5 mg PO BID [facility] Last Admin: 08/01/16 09:47 Dose: 2.5 mg Heparin Sodium (Porcine) (Heparin Flush Port (Ivad)) 5 ml FLUSH DAILY [facility] PRN Reason: Protocol Last Admin: 08/01/16 09:54 Dose: 5 ml Iodixanol (Visipaque* 320 (Contrast)) 94 ml IV ONCE [facility] Stop: 08/02/16 14:57 Last Admin: 07/31/16 15:18 Dose: 94 ml Metformin HCl (Glucophage*) 500 mg PO BID [facility] Last Admin: 08/01/16 09:48 Dose: 500 mg Oxycodone HCl (Oxycontin(*)) 30 mg PO BID [facility] Last Admin: 08/01/16 09:32 Dose: 30 mg Oxycodone HCl (Roxycodone Tab*) 5 mg PO Q4H PRN PRN Reason: PAIN Potassium Chloride (Klor-Con Liquid*) 20 meq PO DAILY [facility] Last Admin: 08/01/16 09:50 Dose: 20 meq Prednisone (Deltasone Tab*) 5 mg PO BID [facility] Last Admin: 08/01/16 09:48 Dose: 5 mg Warfarin Sodium (Coumadin Tab(*)) 5 mg PO 1700 [facility] PRN Reason: Protocol Last Admin: 07/31/16 17:16 Dose: 5 mg Objective: [] Vital Signs Temp Pulse Resp BP Pulse Ox 98.2 F 96 18 145/63 96 08/01/16 07:11 08/01/16 07:11 08/01/16 09:32 08/01/16 07:11 08/01/16 07:11 HEENT - Pale, bleeding right eye, PEERL CTA RRR S1S2 +BS, mild tenderness No NAOMI. CT- progression of liver disease, RTP nodes Assessment: []81 year old on salvage chemtherapy who presents after fall at home. CT scan with progressive disease. Discussed several issues with patient and . Plan: []1. Progressive disease, do not recommend additional therapy. Hospice is appropriate. 2. Agree with sub acute rehab, will have hospice services. No additional chemotherapy or Lupron. 3. Incontinence. Hold Colace. 4. Pain controlled on 30 BID Oxycontin. Follow time with patient and chart was 45 min.
--- NOTE | 2016-08-01 16:09 | CONS ---
PALLIATIVE CARE CONSULTATION: DATE OF CONSULT: 08/01/16 PRIMARY CARE PHYSICIAN: Mayo Gallego MD. REFERRING PHYSICIAN FOR CONSULTATION: Mayo Gallego MD. 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 The patient states his memory is not very clear. He is not entirely clear on how the events transpired. His unfortunately is not at the bedside and unable to be reached by phone. He thought that carpet was slippery and he has not been doing well since his fall. He states that he has been having difficulty with ambulating with a walker and has required to have assistance present when he is walking. He denies any other recent falls. He states that he is not sure how his appetite has been or if he has lost any weight. He would defer to his to answer these questions. He states that he has had a significant amount of abdominal pain around his liver. He states when he is resting without any movement, he has no pain, but with movement, he has trouble with his pain. He states he has had recently loose stools. Normally, he has constipation. No nausea or vomiting and he admits to some confusion that seems to be worse since he has fallen on the . The patient enjoys at home playing [employer] He used to be a pianist and he enjoys listening to classical music as well. When asking him about hospice, he states he has been discussing this with his and a person by the name of Andrzej Denton and there is concern he states about his safety at home and there have been discussions about where he could go. I did discuss the residence and residential with him and again, he wanted me to defer to his for further discussion on this. Otherwise, remaining review of systems is limited, but negative. PAST MEDICAL HISTORY: 1. Prostate cancer diagnosed in 2007. The patient with bone mets diagnosed in 2016, progressed to liver disease and possible pulmonary disease, status post chemotherapy and radiation. 2. History of cognitive impairment, possibly secondary to postconcussive syndrome versus dementia. 3. Vitamin B12 deficiency. 4. Diabetes. 5. History of DVT in the right arm with central line placement. 6. History of gallstones. 7. History of macrocytosis. 8. History of psoriasis. PAST SURGICAL HISTORY: 1. Cataract removal. 2. Tonsillectomy. INPATIENT MEDICATIONS: 1. Potassium chloride 20 mEq p.o. daily. 2. Warfarin 5 mg p.o. daily. 3. Glipizide 2.5 mg p.o. b.i.d. 4. Metformin 500 mg p.o. b.i.d. 5. Oxycodone SR tab 30 mg p.o. b.i.d. 6. Oxycodone 5 mg every 4 hours as needed. 7. Prednisone 5 mg p.o. b.i.d. ALLERGIES: No known drug allergies. FAMILY HISTORY: Daughter with ulcerative colitis. He has an aunt with ovarian cancer. SOCIAL HISTORY: The patient has been living at home with his and as mentioned, was using a walker with assistance. 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 He did quit smoking 25 years ago. At that time, he smoked half a pack per day for 25 years. No recent alcohol use. He lives with his , Maria Isabel Connor, who is his healthcare proxy. He has 2 grown children. His MOLST form currently is a DNR/DNI. REVIEW OF SYSTEMS: Limited and as mentioned in the HPI. PHYSICAL EXAM: Vitals: Temperature 98.2, pulse rate 85, respiratory rate 18, oxygen saturation 98% on room air, blood pressure 119/50. General: No acute distress, resting comfortably. HEENT: Pupils are equal and reactive. He has a subconjunctival hemorrhage in the right. Oropharynx: Mucous membranes are slightly dry. No erythema or exudate. Head is normocephalic. Neck is supple. No lymphadenopathy. Cardiac: Regular rate and rhythm. No murmurs, rubs, or gallops. Respiratory: Diminished breath sounds. No wheezes, rhonchi, or rales. Abdomen is soft. Normal bowel sounds and some mild tenderness over the right upper quadrant region. No rebound or guarding. Extremities: No clubbing , cyanosis, or edema. +1 DPs. Neurologic: Alert and oriented x3. No focal neurologic deficits. LABORATORY DATA: White count 5.2, hemoglobin 9.6, hematocrit 29, platelets 205. INR is 1.58. Sodium 136, potassium 3.8, chloride 103, bicarb 25, BUN 22, creatinine 0.87. Total albumin is 2.8. RADIOGRAPHIC DATA: Chest, abdomen, and pelvis CT: Mass in the caudate lobe of the liver which appears suspicious for metastatic disease, overall measures 5.8 x 7.4 x 4.8. Increasing left pleural effusion, small trace right pleural effusion, increasing sclerotic lesion at T12 vertebrae which was not clearly present before. Other bony metastases are also present at T6, T7, T8. There is also progression of left scapular sclerosis. Interval development of left hydronephrosis and hydroureter. There is wall thickening of the urinary bladder in the left lateral aspect of the urinary bladder. The caudate mass appears unchanged. Head CT: No intracranial mass or hemorrhage is noted. ASSESSMENT: This is an 81-year-old male with a past medical history of metastatic prostate cancer who presented to the emergency after having a fall, having a generalized decline at home. He is no longer safe to be at home according to his physical therapy notes. They do not feel that he will ever be ambulatory again and that he would need to be a Erasmo lift as his would not be able to manage him and transferring him without any additional assistance. The patient is eligible for hospice based on the terminal diagnosis of metastatic prostate cancer with decline in his function. Unfortunately, I was not able to get in touch with the and the patient defers most of his decisions and history to her. He seems to be appropriate candidate for the residence and I will try to reach out to her again for further discussion of this. The patient is on a relatively good narcotic regimen. It does not look like he has gotten any oxycodone. So, I would recommend continuing this narcotic regimen. If this becomes an issue with swallowing, then can transition to Roxanol. Thank you for this consultation. PATIENT TIME: Greater than 90 minutes spent doing consultation, more than half the time spent in direct patient contact. CC: Mayo Gallego MD* [id number]/[facility] #: [id number] CHARLES
[2016-08-01] MEDS: Warfarin TAB(*) 5 MG PO SCH (17:28)
[2016-08-02] MEDS: oxyCODONE TAB* 5 MG TAB PO PRN (07:09)
--- NOTE | 2016-08-02 08:11 | PN ---
Progress Note - Progress Note SOAP: Subjective: feels ok today. reports constipation (though daily BMs recorded) and abdominal discomfort. pain certainly better with pain meds but still not ideal per patient. Objective: Vital Signs Temp Pulse Resp BP Pulse Ox 98.3 F 81 16 131/66 97 08/02/16 06:24 08/02/16 06:24 08/02/16 07:09 08/02/16 06:24 08/02/16 06:24 perr eomi, right conjunctival hemorrhage op moist cta bl s1 s2 nl soft, ttp over enlarged liver, +bs no le edema pleasant, nonfocal neurological exam though globally weak and did not ambulate Laboratory Results - last 24 hr 08/02/16 05:45 INR (Anticoag Therapy) 1.67 H Glipizide (Glucotrol Tab*) 2.5 mg PO BID [facility] Last Admin: 08/01/16 21:41 Dose: 2.5 mg Heparin Sodium (Porcine) (Heparin Flush Port (Ivad)) 5 ml FLUSH DAILY [facility] PRN Reason: Protocol Last Admin: 08/01/16 09:54 Dose: 5 ml Iodixanol (Visipaque* 320 (Contrast)) 94 ml IV ONCE [facility] Stop: 08/02/16 14:57 Last Admin: 07/31/16 15:18 Dose: 94 ml Metformin HCl (Glucophage*) 500 mg PO BID [facility] Last Admin: 08/01/16 21:41 Dose: 500 mg Oxycodone HCl (Roxycodone Tab*) 5 mg PO Q4H PRN PRN Reason: PAIN Last Admin: 08/02/16 07:09 Dose: 5 mg Oxycodone HCl (Oxycontin(*)) 30 mg PO TID [facility] Potassium Chloride (Klor-Con Liquid*) 20 meq PO DAILY [facility] Last Admin: 08/01/16 09:50 Dose: 20 meq Prednisone (Deltasone Tab*) 5 mg PO BID [facility] Last Admin: 08/01/16 21:41 Dose: 5 mg Warfarin Sodium (Coumadin Tab(*)) 5 mg PO MoTuWeThFr@1700 [facility] PRN Reason: Protocol Assessment: 81 yo M w progressive metastatic prostate cancer despite palliative chemotherapy presenting with deconditioning and falls. At this point he has a performance status of 3-4 and is no longer appropriate for therapy. He has had a palliative care consult and at this time decision is SNF w hospice vs. hospice residence, likely next week. Plan: -increase oxycontin to TID for better pain control -cont prednisone, though will start to taper off now that off therapy -can stoppotassium supplementation -DVT: increase warfarin to 5 mg M-F and 7.5 mg Sa-Muro. if at any time pt wants to stop this he can. check INR in 1 week, no need to check sooner -DNR
[2016-08-02] MEDS: oxyCODONE SR TAB(*) 10 MG TAB.SR PO SCH ×3 (08:24→20:04)
[2016-08-02] MEDS: glipiZIDE TAB* 5 MG PO SCH ×2 (08:25→20:03)
[2016-08-02] MEDS: metFORMIN* 500 MG TAB PO SCH ×2 (08:25→20:05)
[2016-08-02] MEDS: predniSONE TAB* 5 MG PO SCH (08:25)
[2016-08-02] MEDS: Warfarin TAB(*) 7.5 MG PO SCH (16:49)
[2016-08-03] MEDS: oxyCODONE TAB* 5 MG TAB PO PRN ×2 (05:32→11:41)
--- NOTE | 2016-08-03 08:09 | PN ---
Subjective Date of Service: 08/03/16 Interval History: Patient seen this morning with present. Patient reports more pain this morning, generalized. Not sure if increase in medications yesterday made a difference. PO intake has been OK. concerned about patient's weakness and thinks more pain control would be helpful in patient's attempts to stand. Family History: Unchanged from Admission Social History: Unchanged from Admission Past Medical History: Unchanged from Admission Objective Active Medications: Glipizide (Glucotrol Tab*) 2.5 mg PO BID [facility] Last Admin: 08/02/16 20:03 Dose: 2.5 mg Heparin Sodium (Porcine) (Heparin Flush Port (Ivad)) 5 ml FLUSH DAILY [facility] PRN Reason: Protocol Last Admin: 08/02/16 08:28 Dose: 5 ml Metformin HCl (Glucophage*) 500 mg PO BID [facility] Last Admin: 08/02/16 20:05 Dose: 500 mg Oxycodone HCl (Roxycodone Tab*) 5 mg PO Q4H PRN PRN Reason: PAIN Last Admin: 08/03/16 05:32 Dose: 5 mg Oxycodone HCl (Oxycontin(*)) 30 mg PO TID [facility] Last Admin: 08/02/16 20:04 Dose: 30 mg Prednisone (Deltasone Tab*) 5 mg PO DAILY [facility] Last Admin: 08/02/16 08:25 Dose: 5 mg Warfarin Sodium (Coumadin Tab(*)) 5 mg PO MoTuWeThFr@1700 [facility] PRN Reason: Protocol Warfarin Sodium (Coumadin Tab(*)) 7.5 mg PO SuSa@1700 [facility] Last Admin: 08/02/16 16:49 Dose: 7.5 mg Vital Signs 08/02/16 08/02/16 08/02/16 08:24 09:09 10:24 Temperature Pulse Rate Respiratory 16 16 16 Rate Blood Pressure (mmHg) O2 Sat by Pulse Oximetry 08/02/16 08/02/16 08/02/16 14:14 15:55 15:57 Temperature 97.4 F Pulse Rate 96 Respiratory 16 17 18 Rate Blood Pressure 152/75 (mmHg) O2 Sat by Pulse 99 Oximetry 08/02/16 08/02/16 08/02/16 19:36 20:00 20:04 Temperature 98.1 F Pulse Rate 93 Respiratory 18 16 16 Rate Blood Pressure 131/65 (mmHg) O2 Sat by Pulse 96 Oximetry 08/02/16 08/02/16 08/03/16 21:59 23:43 03:32 Temperature 98.0 F 97.7 F Pulse Rate 90 88 Respiratory 14 16 16 Rate Blood Pressure 124/56 138/65 (mmHg) O2 Sat by Pulse 98 99 Oximetry 08/03/16 08/03/16 05:32 07:27 Temperature 97.9 F Pulse Rate 86 Respiratory 16 18 Rate Blood Pressure 135/66 (mmHg) O2 Sat by Pulse 97 Oximetry Oxygen Devices in Use Now: None Appearance: Elderly, M, laying in bed in NAD Eyes: No Scleral Icterus Ears/Nose/Mouth/Throat: - - Dry MM Neck: NL Appearance and Movements; NL JVP Cardiovascular: NL Sounds; No Murmurs; No JVD, RRR Abdominal: - - Soft, non-distended, mild TTP in RUQ, no rebound/guarding Lymphatic: No Cervical Adenopathy Extremities: No Edema Skin: No Rash or Ulcers Neurological: - - Alert, oriented, no focal deficits Result Diagrams: 07/31/16 05:11 07/31/16 05:51 Microbiology and Other Data: Microbiology 08/01/16 13:40 Urine Culture - Final Urine Assess/Plan/Problems-Billing Assessment: Metastatic prostate cancer in an 81 yo M who qualifies for hospice - Patient Problems (1) Prostate cancer metastatic to bone Current Visit: No Comment: Will increase prn Oxycodone to 10 mg and encouraged to use before physical activity. Continue Oxycontin 30 TID. Continue prednisone, coumadin. with additional questions regarding hospice. Told her Dr. Hinds should be back in tomorrow, will attempt to get in touch with Dr. Hinds to get a time frame. Status and Disposition: Inpatient, awaiting placement
[2016-08-03] MEDS: glipiZIDE TAB* 5 MG PO SCH ×2 (08:24→19:59)
[2016-08-03] MEDS: predniSONE TAB* 5 MG PO SCH (08:25)
[2016-08-03] MEDS: metFORMIN* 500 MG TAB PO SCH ×2 (08:25→19:59)
[2016-08-03] MEDS: oxyCODONE SR TAB(*) 10 MG TAB.SR PO SCH ×3 (08:26→20:02)
[2016-08-03] MEDS: Warfarin TAB(*) 7.5 MG PO SCH (16:33)
[2016-08-04] MEDS: oxyCODONE TAB* 5 MG TAB PO PRN (03:30)
[2016-08-04] MEDS: oxyCODONE SR TAB(*) 10 MG TAB.SR PO SCH ×3 (09:52→20:44)
[2016-08-04] MEDS: glipiZIDE TAB* 5 MG PO SCH ×2 (09:52→20:45)
[2016-08-04] MEDS: metFORMIN* 500 MG TAB PO SCH ×2 (09:52→20:45)
[2016-08-04] MEDS: predniSONE TAB* 5 MG PO SCH (09:52)
[2016-08-04] MEDS ORDERED: Warfarin TAB(*) 5 MG PO SCH (17:00)
[2016-08-05 08:00] VITALS: BP 135/73
[2016-08-05] MEDS: glipiZIDE TAB* 5 MG PO SCH (08:58)
[2016-08-05] MEDS: metFORMIN* 500 MG TAB PO SCH (08:59)
[2016-08-05] MEDS: predniSONE TAB* 5 MG PO SCH (08:59)
[2016-08-05] MEDS: oxyCODONE SR TAB(*) 10 MG TAB.SR PO SCH (09:00)
[2016-08-05] MEDS: oxyCODONE TAB* 5 MG TAB PO PRN (11:22)
--- NOTE | 2016-08-05 13:04 | DS ---
DISCHARGE SUMMARY: DATE OF ADMISSION: 08/01/16 DATE OF IMPENDING DISCHARGE: 08/05/16 PRINCIPAL DIAGNOSES: 1. Confusion with significant fall at home. 2. History of diabetes. 3. Encephalopathy. 4. Metastatic prostate cancer, progression of his metastatic disease. 5. Possible sepsis. 6. History of urinary tract infection. DISCHARGE MEDICATIONS: Will include: 1. Glipizide 2.5 mg p.o. twice daily. 2. Metformin 500 mg twice daily. 3. Oxycodone 10 mg every 4 hours as needed for breakthrough pain. 4. OxyContin 30 mg p.o. t.i.d. 5. Prednisone 5 mg p.o. daily. 6. Warfarin possibility. The patient is typically on 7.5 mg Thursday, Thursday and 5 mg x5 days. In addition, he will most likely need comfort pack, which would include Ativan 0.5 mg p.o. every 6 hours as needed. This impending discharge is to the hospice residence. HISTORY OF PRESENT ILLNESS: The patient was notified from [facility] and sent to the emergency room status post fall. He had a marked conjunctival hemorrhage, does not remember falling. This patient has had several admissions over the past four months and has been declining significantly throughout those 4 months. In addition, he did have restaging exams including CAT scan of the chest, abdomen and pelvis, which did reveal progression of his disease and increasing sclerotic lesion at T2, T6, T7 and T8. There is interval development of the left hydronephrosis with left hydroureter. In addition, they did scan his brain upon admission through the emergency room, which did not show any intracranial mass or hemorrhage. The patient's performance status has been declining significantly over the past 6 weeks and a palliative care/hospice consultation was initiated with Dr. Debby Hinds. After significant discussion with both he and his , there was discussion that he would be best served in a hospice residence as he is unable to function at home and his is certainly unable to care for him secondary to his decreasing performance status. Please also refer to the discharge summary dated, 07/[address] Katarzyna Hollins for any additional inclusions in that summary as well. The patient will most likely be transferred to the hospice residence tomorrow morning. He has been afebrile and stable during his hospital stay. JIMENA ALBERT [id number]/[facility] #: [id number] [place]LES
== END 2016-08-05 12:00 | disposition hospice, home (50) | DRG 887 ==
LOC: MEDTELE 17:42 → OBSVTOIN 07-31 07:00 → MED 07-31 23:30
PROVIDERS: ADMIT Internal Medicine Hematology & Oncology; ATTEND Internal Medicine Hematology & Oncology
DX: F44.89 Other dissociative and conversion disorders (principal); G93.40 Encephalopathy, unspecified; C78.00 Secondary malignant neoplasm of unspecified lung; C78.7 Secondary malignant neoplasm of liver and intrahepatic bile duct; C79.51 Secondary malignant neoplasm of bone; H11.31 Conjunctival hemorrhage, right eye; Z91.81 History of falling; W18.39XA Other fall on same level, initial encounter; Y93.9 Activity, unspecified; Y92.003 Bedroom of unspecified non-institutional (private) residence as the place of occurrence of the external cause; E11.9 Type 2 diabetes mellitus without complications; C61 Malignant neoplasm of prostate; Z66 Do not resuscitate; E53.8 Deficiency of other specified B group vitamins; F07.81 Postconcussional syndrome; Z86.718 Personal history of other venous thrombosis and embolism; Z79.01 Long term (current) use of anticoagulants; L40.9 Psoriasis, unspecified; Z87.891 Personal history of nicotine dependence; Z79.1 Long term (current) use of non-steroidal anti-inflammatories (NSAID); Z79.891 Long term (current) use of opiate analgesic; Z79.51 Long term (current) use of inhaled steroids; Z79.899 Other long term (current) drug therapy; J30.1 Allergic rhinitis due to pollen; Z80.41 Family history of malignant neoplasm of ovary; R15.9 Full incontinence of feces
CPT/HCPCS: 36415; 36591; 70450; 71260; 74177; 80053; 85025; 85027; 85610; 85730; 87086; 99215; 99220; 99232; 99233; A9270-GY; G0378; G0463; G8978-GP-CM; G8979-GP-CL; G8987-GO-CL; G8988-GO-CK; J1642; J7512; Q9967